=== PATIENT | female | born 1995 | race Caucasian/White ===

== ENCOUNTER 2017-07-13 13:27 | Emergency (ER) | payer OTHER ==
[~2017-07-13] VITALS: Ht 157.5 cm; Wt 50.0 kg
[~2017-07-13 13:27] MED LIST: BCPILLS PO; NAPR1TAB9 PO
[2017-07-13 13:32] VITALS: TEMP 37; Ht 157.5 cm; Wt 50.0 kg
[2017-07-13] MEDS ORDERED: ONDANSETRON INJ 2 MG/ML 2 ML VIAL IV STA (14:12)
[2017-07-13] MEDS ORDERED: SODIUM CHLORIDE 0.9% 1000ML 1,000 ML IV STA (14:12)
[2017-07-13 14:39] LABS: BASO % 0.6 %; BASO ABS # 0.03 K/uL (0-0.2); EOS % 0.4 %; EOS ABS # 0.02 K/uL (0-0.5); HEMOGLOBIN 13.8 g/dL (12.0-16.0); IG# 0.01 K/uL (0.00-0.02); LYMPH % 23.6 %; LYMPH ABS # 1.22 K/uL (1.2-3.4); MEAN CELL VOLUME 86.7 fL (80-100); MEAN CORPUSCULAR HEMOGLOBIN 30.7 pg (25-34); MEAN CORPUSCULAR HGB CONC 35.4 g/dl (32-36); MEAN PLATELET VOLUME 9.8 fL (7.4-10.4); MONO % 6.9 %; MONO ABS # 0.36 K/uL (0.11-0.59); NEUT % 68.3 %; NEUT ABS # 3.54 K/uL (1.4-6.5); PLATELET COUNT 266 K/uL (130-400); RED CELL DISTRIBUTION WIDTH CV 12.9 % (11.5-14.5); RED CELL DISTRIBUTION WIDTH SD 41.2 fL (36.4-46.3); WHITE BLOOD COUNT 5.18 K/uL (4.8-10.8)
[2017-07-13] MEDS ORDERED: SPIR50TA2 PO (14:44)
[2017-07-13 14:54] LABS: CALCIUM 9.5 mg/dl (8.5-10.1); CREATININE 0.68 mg/dl (0.60-1.20); POTASSIUM 3.9 mmol/L (3.5-5.1)
--- NOTE | 2017-07-13 15:24 | EMERGENCY ROOM VISIT NOTE ---
History First contact with patient: 14:02 Chief Complaint: FLU LIKE SX Stated Complaint: FLU DIAGNOSIS YESTERDAY, VERTIGO, VOMITING History of Present Illness The patient is a 22 year old female who presents to the Emergency Room with complaints of swollen glands, dyspnea, sinus pressure and headache, right otalgia, joint and muscle aches since Tuesday. The patient was seen at urgent care yesterday, diagnosed clinically with influenza. She states yesterday evening approximately 6 PM, she began experiencing dizziness, vomiting, nausea, and vertigo. She has not been able to tolerate food or liquid since this occurred. She has not taken any cold or flu medications recently. Earlier this weekend, she was able to tolerate fluids and light foods. She denies any urinary symptoms including dysuria, hematuria, urinary frequency, urinary hesitancy. She denies any fever or chills. She denies any purulent drainage from her sinuses, nose, or throat. Review of Systems A complete 10 point review of systems was reviewed with the patient with pertinent positives and negatives as per history of present illness. All else were negative. Past Medical/Surgical History Acne Social History Smoking Status: Never Smoker Smokeless Tobacco Use: No Alcohol Use: none Drug Use: none Marital Status: single Housing Status: lives with roommate Occupation Status: [employer] Current/Historical Medications Scheduled Ondasetron Odt (Zofran Odt), 4 MG SL Q6H Spironolactone (Aldactone), 50 MG PO DAILY Physical Exam Vital Signs Date Time Temp Pulse Resp B/P (MAP) Pulse Ox O2 Delivery O2 Flow Rate FiO2 07/13/17 16:38 83 16 99/59 100 07/13/17 16:34 83 16 99/59 100 Room Air 07/13/17 14:56 73 16 105/57 100 Room Air 07/13/17 13:32 37.0 116 18 121/79 97 Room Air Physical Exam VITALS: Vitals are noted on the nurse's note and reviewed by myself. Vital signs stable. GENERAL: This is a 22-year-old female, in no acute distress, nondiaphoretic, well-developed well-nourished. SKIN: The skin was without rashes, erythema, edema, or bruising. There is no tenting of the skin. Capillary reflex less than 2 seconds. HEAD: Normocephalic atraumatic. EARS: External auditory canals clear, tympanic membranes pearly kay without erythema or effusion bilaterally. EYES: Pupils equal round and reactive to light and accommodation. Conjunctivae without injection, sclerae without icterus. Extraocular movements intact. NOSE: Patent, turbinates without inflammation or discharge. No sinus tenderness. MOUTH: Mucous membranes moist. Tonsils are not enlarged. Pharynx without erythema or exudate. Uvula midline. Airway patent. Tongue does not deviate. NECK: Supple without nuchal rigidity. No lymphadenopathy. No thyromegaly. Cervical spine is nontender. No JVD. HEART: Regular rate and rhythm without murmurs gallops or rubs. LUNGS: Clear to auscultation bilaterally without wheezes, rales or rhonchi. No dullness to percussion. No retractions or accessory muscle use. ABDOMEN: Positive bowel sounds x 4. Normal tympanic percussion. Soft, nontender, without masses or organomegaly. Peter sign negative. No guarding or rebound tenderness. MUSCULOSKELETAL: No muscle atrophy, erythema, or edema noted. Full range of motion without joint tenderness in all extremities. No tenderness to palpation. Normal gait. Strength 5/5 throughout. NEURO: Patient was alert and oriented to person place and time. Normal sensation to light and sharp touch. Deep tendon reflexes 2+ throughout. No focal neurological deficits. Medical Decision & Procedures ER Provider Diagnostic Interpretation: CBC was without leukocytosis, anemia, thrombocytopenia. PRP did not show any significant renal, electrolyte abnormalities. Laboratory Results 07/13/17 14:24 Red Blood Count 4.50, Mean Corpuscular Volume 86.7, Mean Corpuscular Hemoglobin 30.7, Mean Corpuscular Hemoglobin Concent 35.4, Mean Platelet Volume 9.8, Neutrophils (%) (Auto) 68.3, Lymphocytes (%) (Auto) 23.6, Monocytes (%) (Auto) 6.9, Eosinophils (%) (Auto) 0.4, Basophils (%) (Auto) 0.6, Neutrophils # (Auto) 3.54, Lymphocytes # (Auto) 1.22, Monocytes # (Auto) 0.36, Eosinophils # (Auto) 0.02, Basophils # (Auto) 0.03 07/13/17 14:24 Test 07/13/17 14:24 White Blood Count 5.18 K/uL (4.8-10.8) Red Blood Count 4.50 M/uL (4.2-5.4) Hemoglobin 13.8 g/dL (12.0-16.0) Hematocrit 39.0 % (37-47) Mean Corpuscular Volume 86.7 fL (80-100) Mean Corpuscular Hemoglobin 30.7 pg (25-34) Mean Corpuscular Hemoglobin Concent 35.4 g/dl (32-36) Platelet Count 266 K/uL (130-400) Mean Platelet Volume 9.8 fL (7.4-10.4) Neutrophils (%) (Auto) 68.3 % Lymphocytes (%) (Auto) 23.6 % Monocytes (%) (Auto) 6.9 % Eosinophils (%) (Auto) 0.4 % Basophils (%) (Auto) 0.6 % Neutrophils # (Auto) 3.54 K/uL (1.4-6.5) Lymphocytes # (Auto) 1.22 K/uL (1.2-3.4) Monocytes # (Auto) 0.36 K/uL (0.11-0.59) Eosinophils # (Auto) 0.02 K/uL (0-0.5) Basophils # (Auto) 0.03 K/uL (0-0.2) RDW Standard Deviation 41.2 fL (36.4-46.3) RDW Coefficient of Variation 12.9 % (11.5-14.5) Immature Granulocyte % (Auto) 0.2 % Immature Granulocyte # (Auto) 0.01 K/uL (0.00-0.02) Anion Gap 6.0 mmol/L (3-11) Est Creatinine Clear Calc Drug Dose 103.3 ml/min Estimated GFR () 144.9 Estimated GFR (Non- 125.0 BUN/Creatinine Ratio 30.1 (10-20) Calcium Level 9.5 mg/dl (8.5-10.1) Medications Administered Medications (Trade) Dose Ordered Sig/Pamella Route Start Time Stop Time Status Last Admin Dose Admin Sodium Chloride 1,000 ml @ 999 mls/hr Q1H1M STAT IV 07/13/17 14:12 07/13/17 15:12 DC 07/13/17 14:40 999 MLS/HR Ondansetron HCl (Zofran Inj) 4 mg NOW STAT IV 07/13/17 14:12 07/13/17 14:14 DC 07/13/17 14:39 4 MG Sodium Chloride 500 ml @ 999 mls/hr Q31M STAT IV 07/13/17 15:40 07/13/17 16:10 DC 07/13/17 15:49 999 MLS/HR ED Course Patient was seen and evaluated as above. I did offer an [place] testing, but the patient declines. IV access is obtained, labs drawn. The patient was given 4 mg Zofran and 1 L normal saline solution IV. The patient was reassessed, and is feeling significantly better. She is able to tolerate by mouth fluids at this time, but continues to feel dizzy. She was given another 500mL Bolus NSS IV. She was re-assessed and was feeling much better. Discharge instructions reviewed, and the patient was discharged home in good condition. Medical Decision This is a 22-year-old female patient who presents to the emergency department today complaining of flulike symptoms and nausea with dizziness. The patient states she has been able to tolerate food or fluids for approximately the past one day. She did not have actual influenza testing performed, but instead was clinically diagnosed at urgent care last night. I did offer this testing to her , and she declines. CBC and PRP were performed to evaluate blood counts, electrolyte, and renal function. These are without significant abnormalities. Clinically, I do suspect the patient may have influenza. Overall, she looks well, but did appear to be slightly dehydrated. Her symptoms improved with saline and Zofran. She was able to tolerate by mouth fluids prior to discharge. The patient was given a prescription for Zofran to be used at home when she becomes nauseated. The patient was in agreement with the assessment and plan, and all questions were answered to the patient's satisfaction. Differential diagnosis includes upper respiratory infection, influenza, pneumonia, bronchitis, acute pharyngitis, gastroenteritis, appendicitis, diverticulitis, cholecystitis, meningitis, malignancy, and others Medication Reconcilliation Current Medication List: was personally reviewed by me Blood Pressure Screening Patient's blood pressure: Normal blood pressure Impression Primary Impression: Influenza-like symptoms Departure Information Dispostion Home / Self-Care Condition GOOD Prescriptions Ondasetron Odt (ZOFRAN ODT) 4 Mg Tab 4 MG SL Q6H for Nausea, #6 TAB Prov: Aysha Gan, [place] 07/13/17 Referrals No Doctor, Assigned (PCP) Patient Instructions ED Flu, My [facility] Additional Instructions You were seen and evaluated in the emergency department today for an influenza- like symptoms. I do feel that based on your symptoms, and the duration of illness, this is likely viral in nature. As discussed, antibiotics will not treat viral illness. You have been prescribed Zofran to be used for any nausea or vomiting. Take as prescribed. For your sore throat, you may use a 1:1 mixture of liquid Benadryl and liquid Maalox. Gargle and spit this mixture. It will help to soothe the throat and provide some relief. Drink warm tea with honey and lemon, as this will also help to soothe the throat. Gargle with salt water frequently. As discussed, you should take OTC Mucinex and/or Sudafed for your symptoms. Please do not exceed the recommended daily dosages. Ibuprofen(Motrin, Advil) may be used for fever or pain. Use 600mg every six hours as needed. Take with food. Avoid using more than 2400mg in a 24 hour period. Do not use 2400mg per day for more than three consecutive days without physician direction. Prolonged inappropriate use can lead to stomach upset or ulcers. You may take Naproxen 1-2 tablets twice daily in place of ibuprofen. This medication will help with the swelling in your sinuses. (AND/OR) Acetaminophen(Tylenol) may be used for fever or pain. Use 1000mg every six hours as needed. Avoid using more than 3000mg in a 24 hour period. For congestion, you may use Flonase OTC. You may want to consider zinc, echinacea, and vitamin C to help boost your immunity. Please get plenty of rest and drink plenty of fluids. Please return or follow-up with your PCP in 1 week if you are not experiencing any improvement in your symptoms. Return to the emergency department for coughing up blood, difficulty breathing, chest pain, worsening symptoms, or for other concerns.
[2017-07-13] MEDS ORDERED: ONDA4TAB10 SL (15:25)
[2017-07-13] MEDS ORDERED: SODIUM CHLORIDE 0.9% 500ML 500 ML IV STA (15:40)
[2017-07-13 16:38] VITALS: BP 99/59; PULSE 83; O2SAT 100
== END 2017-07-13 16:35 | disposition home or self-care (01) ==
LOC: C.EDB 13:32 → C.EDC 16:35
DX: R59.9 Enlarged lymph nodes, unspecified (principal); R06.02 Shortness of breath; R51 Headache; H92.01 Otalgia, right ear; M79.1 Myalgia; M25.50 Pain in unspecified joint; Z79.899 Other long term (current) drug therapy; R11.0 Nausea; R42 Dizziness and giddiness